=== PATIENT | male | born 1990 | race Caucasian/White ===

== ENCOUNTER 2024-04-02 23:40 | Emergency (ER) | payer OTHER ==
[2024-04-02 23:47] VITALS: BP 122/72
[2024-04-02] MEDS ORDERED: FAMOTIDINE 10MG/ML 2ML SDV IV STA (23:47)
[2024-04-02] MEDS ORDERED: DiphenhydrAMINE HCL 50 MG/ML SDV IV STA (23:47)
[2024-04-02] MEDS ORDERED: methylPREDNISolone SODIUM SUCC 125 MG/2 ML SDV IV STA (23:47)
[2024-04-02] MEDS ORDERED: SODIUM CHLORIDE 0.9% 1,000 ML IV ONE (23:50)
[2024-04-03 00:04] VITALS: BP 131/74
[2024-04-03 00:15] VITALS: BP 128/82
[2024-04-03 00:30] VITALS: BP 118/68
[2024-04-03 00:45] VITALS: BP 124/71
[2024-04-03 01:01] VITALS: BP 113/56
[2024-04-03] MEDS ORDERED: PREDNISONE50 MG PO (01:07)
[2024-04-03] MEDS ORDERED: predniSONE 20 MG/TAB PO ONE (01:10)
[2024-04-03 01:16] VITALS: BP 112/58
== END 2024-04-03 01:35 | disposition home or self-care (01) | DRG 607 ==
LOC: ED 23:40
DX: L50.0 Allergic urticaria (principal)